=== PATIENT | female | born 1985 | race Caucasian/White ===

== ENCOUNTER 2020-06-24 05:29 | Emergency (ER) | payer OTHER, SELFPAY ==
--- NOTE | ~2020-06-24 | XR_ITS ---
EXAMINATION: XR chest 1V portable DATE: 06/24/2020 06:30 INDICATION: Shortness of breath. TECHNIQUE: A single frontal view of the chest was obtained. COMPARISON: None. FINDINGS: The chest demonstrates clear lungs without pneumonia, pleural effusion, or pneumothorax. Th e heart size is normal. IMPRESSION: 1. No acute cardiopulmonary disease. Reviewed, dictated and finalized at location A. [employer]
[2020-06-24 05:38] VITALS: BP 120/79; PULSE 77; RESP 16; TEMP 35.9; O2SAT 100
[2020-06-24 06:09] VITALS: O2SAT 96
--- NOTE | 2020-06-24 06:16 | ED.SOB ---
HPI - SOB/Dyspnea General Chief Complaint: Shortness of Breath/Dyspnea Stated Complaint: cough, i know i have pneumonia Time Seen by Provider: 06/24/20 05:44 History of Present Illness HPI Narrative: Patient is a 34-year-old female who presents ER with concerns for pneumonia. Patient reports last week she was hospitalized in the ICU at [facility] in [place] for methamphetamine overdose. She reports she was in the ICU for 2 days and then when she was awoken she was told she had pneumonia and then she signed out AGAINST MEDICAL ADVICE. She then reports she went to [facility] yesterday and was evaluated and was prescribed azithromycin for her pneumonia. She is unsure of her Covid status. She reports that she has been having cough with some shortness of breath. She also reports that she has been having diarrhea over the last 3 to 4 days that she is having 6 stools a day. No blood. She has had some cramping discomfort in her abdomen. Was concerned about her diarrhea so she came in as well. Related Data Home Medications Medication Instructions Recorded Confirmed nitrofurantoin monohyd/m-cryst 1 cap PO BID 06/07/19 06/07/19 Allergies Allergy/AdvReac Type Severity Reaction Status Date / Time No Known Allergies Allergy Verified 06/07/19 19:45 Review of Systems Review of Systems: All systems reviewed & are unremarkable except as noted in HPI and below Constitutional: Constitutional: Reports chills and Reports weakness ENT: Denies nasal congestion and Denies sore throat Respiratory: Respiratory: Reports cough, Reports dyspnea and Denies wheezing Gastrointestinal: Gastrointestinal: Denies abdominal pain, Reports diarrhea, Denies nausea and Denies vomiting PMFSH Past Medical History Medical History (Updated 06/24/20 @ 08:08 by Sebastian Schultz MD) Hepatitis C Surgical History Surgical History (Updated 06/24/20 @ 06:50 by Tyrone Del Rio MD) History of section Social History Social History (Updated 06/24/20 @ 06:50 by Tyrone Del Rio MD) Substance use type: methamphetamine Gender identity (if verbalized by the patient): Female Exam Narrative: Exam Narrative: GENERAL: Well-appearing, well-nourished, and in no acute distress. HEAD: Normocephalic, atraumatic. CHEST: Clear to auscultation. No respiratory distress. HEART: Regular rate and rhythm. Normal peripheral pulses. ABDOMEN: Soft, nontender, nondistended. EXTREMITIES: Normal range of motion. No edema. SKIN: Warm, dry, no rash. NEURO: Alert and oriented x3. PSYCH: Normal mood and affect. Course Vital Signs Vital signs: Vital Signs Temperature 96.6 F L 06/24/20 05:38 Pulse Rate 77 06/24/20 05:38 Respiratory Rate 16 06/24/20 05:38 Blood Pressure 120/79 06/24/20 05:38 Pulse Oximetry 100 06/24/20 05:38 Temperature 96.6 F L 06/24/20 05:38 Pulse Rate 71 06/24/20 08:47 Respiratory Rate 12 06/24/20 08:47 Blood Pressure 123/78 06/24/20 08:47 Pulse Oximetry 99 06/24/20 08:47 MDM - SOB/Dyspnea Lab Data Result diagrams: 06/24/20 07:35 06/24/20 07:35 Labs: Lab Results 06/24/20 06/24/20 Range/Units 07:35 07:35 WBC 7.2 (4.5-10.0) K/mm3 RBC 4.22 (4.2-5.4) M/mm3 Hgb 13.0 (12.0-15.0) g/dL Hct 38.1 (37.0-47.0) % MCV 90.3 (80-100) fl MCH 30.8 (26-34) pg MCHC 34.1 (32-36) g/dl RDW 13.2 (11.5-14.5) % Plt Count 283 (150-375) k/mm3 MPV 11.5 H (7.4-10.4) fl Immature Gran % (Auto) 0.4 (0-0.5) % Neut % (Auto) 68.0 (45.5-73.1) % Lymph % (Auto) 19.8 (18.3-44.2) % Toole % (Auto) 9.5 H (2.6-8.5) % Eos % (Auto) 2.0 (0-4.4) % Baso % (Auto) 0.3 (0.2-1.2) % Lymph # (Auto) 1.42 (0.9-3.2) K/mm3 Toole # (Auto) 0.7 H (0.1-0.6) K/mm3 Eos # (Auto) 0.1 (0-0.3) K/mm3 Baso # (Auto) 0.0 (0.0-0.1) K/mm3 Abs Immat Gran (auto) 0.03 (0.00-0.031) K/mm3 Absolute Neuts (auto) 4.9 (1.3-6.7) K/mm3
--- NOTE | 2020-06-24 06:34 | PC.NURSE ---
this rn attempted IV 2x, no success.
[2020-06-24 07:01] VITALS: BP 112/75; PULSE 65; RESP 18; O2SAT 99
[2020-06-24] MEDS: SODIUM CHLORIDE 0.9% IV 1,000 ML 999 ML IV CONT (07:38)
[2020-06-24 07:42] LABS: Basophils Percent Auto 0.3 % (0.2-1.2); Eosinophils Absolute Auto 0.1 K/mm3 (0-0.3); Hematocrit 38.1 % (37.0-47.0); Immature Granulocyte Absolute 0.03 K/mm3 (0.00-0.031); Immature Granulocyte Percent A 0.4 % (0-0.5); Lymphocytes Absolute Auto 1.42 K/mm3 (0.9-3.2); Lymphocytes Percent Auto 19.8 % (18.3-44.2); Mean Corpuscular HGB Conc 34.1 g/dl (32-36); Mean Corpuscular Hemoglobin 30.8 pg (26-34); Mean Corpuscular Volume 90.3 fl (80-100); Mean Platelet Volume 11.5 fl (7.4-10.4); Monocytes Absolute Auto 0.7 K/mm3 (0.1-0.6); Monocytes Percent Auto 9.5 % (2.6-8.5); Neutrophils Absolute Auto 4.9 K/mm3 (1.3-6.7); Platelet Count Result 283 k/mm3 (150-375); Red Blood Count 4.22 M/mm3 (4.2-5.4); Red Cell Distribution Width 13.2 % (11.5-14.5); White Blood Count 7.2 K/mm3 (4.5-10.0)
[2020-06-24 07:52] LABS: Alanine Aminotransferase 37 U/L (4-35); Albumin Level 3.8 g/dL (3.5-5.1); Alkaline Phosphatase 79 U/L (38-126); Anion Gap 6 mmol/L (8-16); Aspartate Amino Transferase 65 U/L (14-36); Bilirubin,Total 0.5 mg/dL (0.2-1.3); Blood Urea Nitrogen 12 mg/dL (7-17); Calcium 8.9 mg/dL (8.4-10.2); Carbon Dioxide 30 mmol/L (22-30); Chloride 102 mmol/L (98-107); Estimated CRCL calculation 124 ml/min; Estimated Glomerular Filt Rate > 60; Glucose 91 mg/dL (65-105); Potassium 3.9 mmol/L (3.4-5.0); Sodium 138 mmol/L (137-145)
[2020-06-24 08:47] VITALS: BP 123/78; PULSE 71; RESP 12; O2SAT 99
--- NOTE | 2020-07-05 17:09 | PC.NURSE ---
LATE ENTRY This note is being entered to document information to the patient's record. The following information was omitted on [07/05/20], by [PATI Franklin stopped at 0838 on 06/24/20].
== END 2020-06-24 08:47 | disposition home or self-care (01) ==
PROVIDERS: Emergency Provider Emergency Medicine
DX: R19.7 Diarrhea, unspecified (principal); Z86.19 Personal history of other infectious and parasitic diseases
CPT/HCPCS: 36415; 71045; 80053; 85025; 96360; 99283; J7030